=== PATIENT | female | born 1990 ===

== ENCOUNTER 2018-08-04 09:31 | Outpatient (CLI) | payer SELFPAY | END 2018-08-04 09:32 | disposition home or self-care (01) | LOC: C.LAB 09:31 | DX: O09.32 Supervision of pregnancy with insufficient antenatal care, second trimester (principal) ==

== ENCOUNTER 2018-09-18 09:44 | Outpatient (CLI) | payer SELFPAY | END 2018-09-18 09:45 | disposition home or self-care (01) | LOC: C.LAB 09:44 | DX: Z34.92 Encounter for supervision of normal pregnancy, unspecified, second trimester (principal) ==

== ENCOUNTER 2018-11-17 15:40 | Outpatient (CLI) | payer SELFPAY | END 2018-11-17 15:41 | disposition home or self-care (01) | LOC: C.LAB 15:40 ==